=== PATIENT | male | born 1950 | race Caucasian/White ===

== ENCOUNTER 2021-08-08 12:55 | Observation (INO) | payer MEDICARE ==
[2021-08-08] MEDS ORDERED: Sodium Chloride 0.9% 10 ML Syringe FLUSH PRN ×2 (13:19→19:14)
[2021-08-08] MEDS ORDERED: Aspirin 81 MG Tab.Chew PO ONE (13:20)
--- NOTE | 2021-08-08 13:21 | EDM.PDOC ---
ED HPI GENERAL MEDICAL PROBLEM - General Chief Complaint: Neuro Symptoms/Deficits Stated Complaint: MEDICAL VIA [facility] Time Seen by Provider: 08/08/21 13:21 Source of Information: Reports: Patient, Old Records, RN History Limitations: Reports: No Limitations - History of Present Illness INITIAL COMMENTS - FREE TEXT/NARRATIVE: 70 yo male presents after 30 min of R arm and leg weakness/poor control associated with slurred speech. His sx's are resolved before arrival. No hx of CVA or TIA. He does have a hx of elevated cholesterol(not on treatment), elevated BP(has taken his meds today). No hx of either afib or tobacco use. No BERRY. Does have a remote hx of a single seizure and is no longer on tx for that. His mother had a CVA in her 90's. Onset: Today, Sudden Onset Date: 08/08/21 Duration: Minutes: (30), Resolved Prior to Arrival Location: Reports: Face, Upper Extremity, Right, Lower Extremity, Right Quality: Reports: Other (no pain) Severity: Moderate Improves with: Reports: Other (time) Worsens with: Reports: None Context: Reports: Other (See HPI) Associated Symptoms: Reports: No Other Symptoms. Denies: Chest Pain, Diaphoresis, Nausea/Vomiting, Seizure, Shortness of Breath, Syncope Treatments WELFARE DIRECTOR: Reports: Other (see below) (none) - Related Data Allergies Allergy/AdvReac Type Severity Reaction Status Date / Time No Known Allergies Allergy Verified 08/08/21 13:05 Home Meds: Home Meds Cholecalciferol (Vitamin D3) [Vitamin D3] 100 unit PO DAILY 08/08/21 [History] Cyanocobalamin (Vitamin B-12) [Vitamin B-12] 1,000 mcg PO DAILY 08/08/21 [History] Red Yeast Rice 600 mg PO DAILY 08/08/21 [History] lisinopriL [Lisinopril] 10 mg PO DAILY 08/08/21 [History] Past Medical History Cardiovascular History: Reports: Hypertension Neurological History: Reports: Seizure - Past Surgical History GI Surgical History: Reports: Appendectomy, Colon, Colonoscopy, Hernia, Inguinal, Polypectomy Social & Family History - Tobacco Use Tobacco Use Status *Q: Never Tobacco User - Caffeine Use Caffeine Use: Reports: Tea - Recreational Drug Use Recreational Drug Use: No ED ROS GENERAL - Review of Systems Review Of Systems: See Below Constitutional: Reports: No Symptoms HEENT: Reports: No Symptoms Respiratory: Reports: No Symptoms Cardiovascular: Reports: No Symptoms GI/Abdominal: Reports: Nausea (mild, now gone) : Reports: No Symptoms Musculoskeletal: Reports: No Symptoms Skin: Reports: No Symptoms Neurological: Reports: Change in Speech, Other (R sided arm and leg weakness/po or control). Denies: Confusion, Trouble Speaking Psychiatric: Reports: No Symptoms ED EXAM, NEURO - Physical Exam Exam: See Below Exam Limited By: No Limitations General Appearance: Alert, WD/WN, No Apparent Distress Eye Exam: Bilateral Eye: EOMI, Normal Inspection, PERRL Ears: Normal External Exam, Normal Canal, Hearing Grossly Normal, Normal TMs Nose: Normal Inspection, No Blood Throat/Mouth: Normal Inspection, Normal Lips, Normal Oropharynx, Normal Voice, No Airway Compromise Head Exam: Atraumatic, Normocephalic Neck: Normal Inspection Respiratory/Chest: No Respiratory Distress, Lungs Clear, Normal Breath Sounds, No Accessory Muscle Use Cardiovascular: Regular Rate, Rhythm, No Edema GI/Abdominal: Normal Bowel Sounds, Soft, Non-Tender, No Distention Neurological: Alert, Normal Mood/Affect, Normal Dorsiflexion, CN II-XII Intact, No Motor/Sensory Deficits, Oriented x 3 Extremities: Normal Inspection, Normal Range of Motion, Non-Tender, No Pedal Edema Psychiatric: Normal Affect, Normal Mood Skin Exam: Warm, Dry, Intact, Normal Color, No Rash Course - Vital Signs Text/Narrative:: [facility] neurology called @ 1436h, Dr. Abdi. Called back to [facility] @ 1632h, Dr. Abdi, Dr. Rowland notified @ 1725h Last Recorded V/S: Last Vital Signs Temp 36.3 C 08/08/21 13:09 Pulse 64 08/08/21 17:12 Resp 18 08/08/21 17:12 BP 188/96 H 08/08/21 17:12 Pulse Ox 98 08/08/21 17:12 - Orders/Labs/Meds Orders: Active Orders 24 hr Category Date Time Status Cardiac Monitoring [RC] .As Directed Care 08/08/21 13:19 Active Iopamidol [Isovue-370 (76%)] Med 08/08/21 17:00 Active 100 ml IV . DIRECTED Sodium Chloride 0.9% [Normal Saline] 100 ml Med 08/08/21 17:00 Active IV ASDIRECTED Sodium Chloride 0.9% [Saline Flush] Med 08/08/21 13:19 Active 10 ml FLUSH ASDIRECTED PRN Saline Lock Insert [OM.PC] Routine Oth 08/08/21 13:19 Ordered Medication Orders Sodium Chloride (Normal Saline) 100 mls @ 3.5 mls/sec IV ASDIRECTED ROMEL Iopamidol (Iopamidol 755 Mg/Ml 100 Ml Bottle) 100 ml IV . DIRECTED ROMEL Sodium Chloride (Sodium Chloride 0.9% 10 Ml Syringe) 10 ml FLUSH ASDIRECTED PRN PRN Reason: Keep Vein Open Last Admin: 08/08/21 13:56 Dose: 10 ml Documented by: ANTWON Labs: Laboratory Tests 08/08/21 08/08/21 Range/Units 13:30 13:30 WBC 10.6 (4.5-11.0) K/uL RBC 4.94 (4.30-5.90) M/uL Hgb 15.0 (12.0-15.0) g/dL Hct 45.0 (40.0-54.0) % MCV 91 (80-98) fL MCH 30 (27-31) pg MCHC 33 (32-36) % Plt Count 231 (150-400) K/uL Sodium 143 (140-148) mmol/L Potassium 4.7 (3.6-5.2) mmol/L Chloride 105 (100-108) mmol/L Carbon Dioxide 30 (21-32) mmol/L Anion Gap 8.0 (5.0-14.0) mmol/L BUN 15 (7-18) mg/dL Creatinine 1.2 (0.8-1.3) mg/dL Est Cr Clr Drug Dosing 64.73 mL/min Estimated GFR (MDRD) 60 (>60) Glucose 104 (74-106) mg/dL Calcium 9.5 (8.5-10.1) mg/dL Troponin I < 0.017 (0.000-0.056) ng/mL Meds: Medications Generic Name Dose Route Start Last Admin Trade Name Freq PRN Reason Stop Dose Admin Sodium Chloride 100 mls @ 3.5 mls/sec 08/08/21 17:00 Normal Saline IV ASDIRECTED ROMEL Iopamidol 100 ml 08/08/21 17:00 Iopamidol 755 Mg/Ml 100 Ml Bottle IV . DIRECTED ROMEL Sodium Chloride 10 ml 08/08/21 13:19 08/08/21 13:56 Sodium Chloride 0.9% 10 Ml Syringe FLUSH 10 ml ASDIRECTED PRN Administration Keep Vein Open Discontinued Medications Generic Name Dose Route Start Last Admin Trade Name Freq PRN Reason Stop Dose Admin Aspirin 324 mg 08/08/21 13:20 08/08/21 13:55 Aspirin 81 Mg Tab.Chew PO 08/08/21 13:21 324 mg ONETIME ONE Administration Atorvastatin Calcium 10 mg 08/08/21 14:44 08/08/21 15:09 Atorvastatin 10 Mg Tab PO 08/08/21 14:45 10 mg ONETIME ONE Administration Clopidogrel Bisulfate 300 mg 08/08/21 14:43 08/08/21 15:10 Clopidogrel 75 Mg Tab PO 08/08/21 14:44 300 mg ONETIME ONE Administration Clopidogrel Bisulfate 300 mg 08/08/21 17:23 Clopidogrel 75 Mg Tab PO 08/08/21 17:24 ONETIME ONE Sodium Chloride 10 ml 08/08/21 16:59 Sodium Chloride 0.9% 10 Ml Syringe FLUSH 08/08/21 17:00 ONETIME ONE - Radiology Interpretation Free Text/Narrative:: Head CT scan-mpression: No acute intracranial process. Please note that all CT scans at this facility use dose modulation, iterative reconstruction, and/or weight-based dosing when appropriate to reduce radiation dose to as low as reasonably achievable. Dictated by Ev Petit MD @ 08/08/2021 2:28:[address] Results Date: 08/08/21 CT Results Time: 14:34 - Re-Assessments/Exams Free Text/Narrative Re-Assessment/Exam: 08/08/21 14:54 Just after getting off the phone with neurology his speech became a little slurred again, no other sx's. Free Text/Narrative Re-Assessment/Exam: 08/08/21 15:16 Has some trouble with swallowing and has mild RUE sx's now. Departure - Departure Time of Disposition: 17:40 Disposition: Admitted As Inpatient 65 Condition: Fair Clinical Impression: TIA (transient ischemic attack) - Discharge Information Referrals: PCP,None [Primary Care Provider] - Forms: ED Department Discharge Sepsis Event Note (ED) - Evaluation Sepsis Screening Result: No Definite Risk - Focused Exam Vital Signs: Vital Signs Temp Pulse Resp BP Pulse Ox 08/08/21 17:12 64 18 188/96 H 98 08/08/21 16:24 64 15 180/99 H 97 08/08/21 14:21 61 13 168/96 H 97 08/08/21 13:53 61 16 165/92 H 99 08/08/21 13:09 36.3 C 62 13 160/86 H 96 08/08/21 13:05 36.3 C 62 13 160/86 H 96 - My Orders Last 24 Hours: My Active Orders 08/08/21 13:19 Cardiac Monitoring [RC] .As Directed Sodium Chloride 0.9% [Saline Flush] 10 ml FLUSH ASDIRECTED PRN Saline Lock Insert [OM.PC] Routine 08/08/21 17:00 Iopamidol [Isovue-370 (76%)] 100 ml IV . DIRECTED Sodium Chloride 0.9% [Normal Saline] 100 ml IV ASDIRECTED - Assessment/Plan Last 24 Hours: My Active Orders 08/08/21 13:19 Cardiac Monitoring [RC] .As Directed Sodium Chloride 0.9% [Saline Flush] 10 ml FLUSH ASDIRECTED PRN Saline Lock Insert [OM.PC] Routine 08/08/21 17:00 Iopamidol [Isovue-370 (76%)] 100 ml IV . DIRECTED Sodium Chloride 0.9% [Normal Saline] 100 ml IV ASDIRECTED
--- NOTE | 2021-08-08 14:29 | CRLCT ---
For Patients: As a result of the Century Cures Act, medical imaging exams and procedure reports are released immediately into your electronic medical record. You may view this report before your referring provider. If you have questions, please contact your health care provider. Indication: Neuro deficit. Technique: Multiple contiguous axial images were obtained from the skullbase to the vertex without intravenous contrast enhancement. Please note that all CT scans at this facility use dose modulation, iterative reconstruction, and/or weight-based dosing when appropriate to reduce radiation dose to as low as reasonably achievable. Comparison: None Findings: The ventricles are symmetric and normal in size and morphology. The basal cisterns are widely patent. No intra-axial or extra-axial hemorrhage is identified. No mass, mass effect, or midline shift is identified. The bony calvarium is intact. The visualized paranasal sinuses and mastoid air cells are clear. Impression: No acute intracranial process. Please note that all CT scans at this facility use dose modulation, iterative reconstruction, and/or weight-based dosing when appropriate to reduce radiation dose to as low as reasonably achievable. Dictated by Ev Petit MD @ 08/08/2021 2:28:05 PM (Electronically Signed)
[2021-08-08] MEDS ORDERED: Clopidogrel 75 MG Tab PO ONE ×2 (14:43→17:23)
[2021-08-08] MEDS ORDERED: atorvaSTATin 10 MG Tab PO ONE (14:44)
--- NOTE | 2021-08-08 16:23 | CRLCT ---
For Patients: As a result of the Century Cures Act, medical imaging exams and procedure reports are released immediately into your electronic medical record. You may view this report before your referring provider. If you have questions, please contact your health care provider. INDICATION: Transient ischemic attack. TECHNIQUE: CTA head with contrast bolus tracking and 3D MIP reconstruction. FINDINGS: There is scattered intracranial atherosclerotic disease. There is irregularity of the basilar artery with mild stenosis of the mid basilar artery. There is a moderate left posterior cerebral artery stenosis. There are mild stenoses of the anterior and middle cerebral arteries. There is no large vessel occlusion. No aneurysm is identified. IMPRESSION: Intracranial atherosclerotic disease as detailed above. No large vessel occlusion. Please note that all CT scans at this facility use dose modulation, iterative reconstruction, and/or weight-based dosing when appropriate to reduce radiation dose to as low as reasonably achievable. Dictated by James Diehl MD @ 08/08/2021 5:30:19 PM (Electronically Signed)
--- NOTE | 2021-08-08 16:23 | CRLCT ---
For Patients: As a result of the Century Cures Act, medical imaging exams and procedure reports are released immediately into your electronic medical record. You may view this report before your referring provider. If you have questions, please contact your health care provider. INDICATION: Transient ischemic attack. TECHNIQUE: CTA neck with contrast bolus tracking and 3D MIP reconstruction. FINDINGS: Both carotid and vertebral arteries have a normal course and caliber. There is no stenosis or dissection. An indeterminate 1 centimeter nodule is noted in the right thyroid gland. The soft tissues of the neck are otherwise within normal limits. Degenerative changes are incidentally noted in the cervical spine. IMPRESSION: No carotid or vertebral artery stenosis or dissection. Please note that all CT scans at this facility use dose modulation, iterative reconstruction, and/or weight-based dosing when appropriate to reduce radiation dose to as low as reasonably achievable. Dictated by James Diehl MD @ 08/08/2021 5:34:14 PM (Electronically Signed)
[2021-08-08] MEDS ORDERED: Sodium Chloride 0.9% 10 ML Syringe FLUSH ONE (16:59)
[2021-08-08] MEDS ORDERED: Sodium Chloride 0.9% 100 ML IV SCH (17:00)
[2021-08-08] MEDS ORDERED: Iopamidol 755 Mg/ML 100 ML Bottle IV SCH (17:00)
--- NOTE | 2021-08-08 18:20 | PCM.HP.2 ---
H&P History of Present Illness - General Date of Service: 08/08/21 Admit Problem/Dx: Admission Diagnosis/Problem Admission Diagnosis/Problem TIA, Transient ischemic attack Source of Information: Patient, Family, Provider, RN Notes Reviewed History Limitations: Reports: No Limitations - History of Present Illness Initial Comments - Free Text/Narative: Mr. Vang is a 70-year-old gentleman who was admitted to observation status through the emergency department for further evaluation and management of a TIA. He was feeling well until this morning when he began to experience right leg and arm weakness. He was able to get help from his and she noted abnormality of his speech. He was brought into the emergency department by EMS. Shortly thereafter his symptoms resolved. He had a transient recurrence of right arm and leg weakness that was fairly mild that resolved after a few minutes. He has had no recurrent symptoms since that time. CT scan of the head without contrast showed no acute abnormalities. CTA of the head and neck showed dense of some mild to moderate atherosclerotic disease but nothing severe. His symptoms and findings have been reviewed with neurologist on-call in [place] and they have recommended that he be monitored overnight with MRI, carotid Doppler and echocardiogram in the a.m. He has been started on aspirin, Plavix, and Lipitor. - Related Data Allergies/Adverse Reactions: Allergies Allergy/AdvReac Type Severity Reaction Status Date / Time No Known Allergies Allergy Verified 08/08/21 13:05 Home Medications: Home Meds Cholecalciferol (Vitamin D3) [Vitamin D3] 100 unit PO DAILY 08/08/21 [History] Cyanocobalamin (Vitamin B-12) [Vitamin B-12] 1,000 mcg PO DAILY 08/08/21 [History] Red Yeast Rice 600 mg PO DAILY 08/08/21 [History] lisinopriL [Lisinopril] 10 mg PO DAILY 08/08/21 [History] Past Medical History Cardiovascular History: Reports: Hypertension Neurological History: Reports: Seizure - Past Surgical History GI Surgical History: Reports: Appendectomy, Colon, Colonoscopy, Hernia, Inguinal, Polypectomy Social & Family History - Tobacco Use Tobacco Use Status *Q: Never Tobacco User - Caffeine Use Caffeine Use: Reports: Tea - Recreational Drug Use Recreational Drug Use: No H&P Review of Systems - Review of Systems: Review Of Systems: See Below General: Reports: No Symptoms HEENT: Reports: No Symptoms Pulmonary: Reports: No Symptoms Cardiovascular: Reports: No Symptoms Gastrointestinal: Reports: No Symptoms Genitourinary: Reports: No Symptoms Musculoskeletal: Reports: No Symptoms Skin: Reports: No Symptoms Psychiatric: Reports: No Symptoms Neurological: Reports: Weakness, Change in Speech Hematologic/Lymphatic: Reports: No Symptoms Immunologic: Reports: No Symptoms Exam - Exam Exam: See Below - Vital Signs Vital Signs: Last Vital Signs Temp 97.3 F 08/08/21 13:09 Pulse 64 08/08/21 17:12 Resp 18 08/08/21 17:12 BP 188/96 H 08/08/21 17:12 Pulse Ox 98 08/08/21 17:12 Weight: 195 lb - Exam General: Alert, Oriented HEENT: Conjunctiva Clear, Hearing Intact, Mucosa Moist & [place], Normal Nasal Septum, Posterior Pharynx Clear, Pupils Equal Neck: Supple, Trachea Midline, +2 Carotid Pulse wo Bruit Lungs: Clear to Auscultation, Normal Respiratory Effort Cardiovascular: Regular Rate, Regular Rhythm, Normal S1, Normal S2. No: Systolic Murmur, Diastolic Murmur GI/Abdominal Exam: Soft, Non-Tender, No Organomegaly, No Distention Back Exam: Normal Inspection, Full Range of Motion Extremities: Non-Tender, No Pedal Edema Skin: Warm, Dry, Intact Neurological: Cranial Nerves Intact, Strength Equal Bilateral, Normal Speech, Normal Tone, Sensation Intact. No: Focal Deficit Neuro Extensive - Mental Status: Alert, Oriented x3, Normal Mood/Affect, Normal Cognition, Memory Intact - Patient Data Lab Results Last 24 hrs: Laboratory Results - last 24 hr 08/08/21 08/08/21 Range/Units 13:30 13:30 WBC 10.6 (4.5-11.0) K/uL RBC 4.94 (4.30-5.90) M/uL Hgb 15.0 (12.0-15.0) g/dL Hct 45.0 (40.0-54.0) % MCV 91 (80-98) fL MCH 30 (27-31) pg MCHC 33 (32-36) % Plt Count 231 (150-400) K/uL Sodium 143 (140-148) mmol/L Potassium 4.7 (3.6-5.2) mmol/L Chloride 105 (100-108) mmol/L Carbon Dioxide 30 (21-32) mmol/L Anion Gap 8.0 (5.0-14.0) mmol/L BUN 15 (7-18) mg/dL Creatinine 1.2 (0.8-1.3) mg/dL Est Cr Clr Drug Dosing 64.73 mL/min Estimated GFR (MDRD) 60 (>60) Glucose 104 (74-106) mg/dL Calcium 9.5 (8.5-10.1) mg/dL Troponin I < 0.017 (0.000-0.056) ng/mL Result Diagrams: 08/08/21 13:30 08/08/21 13:30 Sepsis Event Note - Evaluation Sepsis Screening Result: No Definite Risk - Focused Exam Vital Signs: Vital Signs Temp Pulse Resp BP Pulse Ox 08/08/21 17:12 64 18 188/96 H 98 08/08/21 16:24 64 15 180/99 H 97 08/08/21 14:21 61 13 168/96 H 97 08/08/21 13:53 61 16 165/92 H 99 08/08/21 13:09 97.3 F 62 13 160/86 H 96 08/08/21 13:05 97.3 F 62 13 160/86 H 96 *Q Meaningful Use (ADM) - VTE Risk Assess *Q Each Risk Factor Represents 1 Point: None Total Score 1 Point Risk Factors: 0 Each Risk Factor Represents 2 Points: Age 60 - 74 Years Total Score 2 Point Risk Factors: 2 Each Risk Factor Represents 3 Points: None Total Score 3 Point Risk Factors: 0 Each Risk Factor Represents 5 Points: None Total Score 5 Point Risk Factors: 0 Venous Thromboembolism Risk Factor Score *Q: 2 Problem List Initiated/Reviewed/Updated: Yes Orders Last 24hrs: Active Orders 24 hr Category Date Time Status Patient Status Manage Transfer [TRANSFER] Routine ADT 08/08/21 18:05 Ordered Cardiac Monitoring [RC] .As Directed Care 08/08/21 13:19 Active COVID-19/FLU A+B/RSV [MOLEC] Stat Lab 08/08/21 18:09 Received Iopamidol [Isovue-370 (76%)] Med 08/08/21 17:00 Active 100 ml IV . DIRECTED Sodium Chloride 0.9% [Normal Saline] 100 ml Med 08/08/21 17:00 Active IV ASDIRECTED Sodium Chloride 0.9% [Saline Flush] Med 08/08/21 13:19 Active 10 ml FLUSH ASDIRECTED PRN Saline Lock Insert [OM.PC] Routine Oth 08/08/21 13:19 Ordered Resuscitation Status Routine Resus Stat 08/08/21 18:06 Ordered Medication Orders Sodium Chloride (Normal Saline) 100 mls @ 3.5 mls/sec IV ASDIRECTED [facility] Last Admin: 08/08/21 18:07 Dose: 4 mls/sec Documented by: RUY Iopamidol (Iopamidol 755 Mg/Ml 100 Ml Bottle) 100 ml IV . DIRECTED [facility] Last Admin: 08/08/21 18:07 Dose: 100 ml Documented by: RUY Sodium Chloride (Sodium Chloride 0.9% 10 Ml Syringe) 10 ml FLUSH ASDIRECTED PRN PRN Reason: Keep Vein Open Last Admin: 08/08/21 13:56 Dose: 10 ml Documented by: ANTWON Assessment/Plan Comment:: ASSESSMENT AND PLAN TRANSIENT ISCHEMIC ATTACK-onset of transient right-sided weakness with expressive aphasia earlier today. Symptoms resolved and then recurred for a few minutes. He is now fully back to normal and denies any neurologic symptoms. Evaluation has been unremarkable including unenhanced CT scan of the head, as well as CTA of the head and neck. -Neurochecks every 2 hours -Cardiac monitoring -Plavix 75 mg p.o. daily -Aspirin 325 mg p.o. daily -Atorvastatin 10 mg p.o. nightly -MRI with contrast in a.m. -Carotid ultrasound in a.m. -Echocardiogram in a.m. HYPERTENSION -Continue current therapy with lisinopril MAINTENANCE ISSUES -DVT prophylaxis; SCUDs -GI prophylaxis; not indicated -Noonan catheter; not indicated -Nutrition; 2 g sodium diet -Nicotine dependence; not required CODE STATUS-FULL CODE ADMISSION STATUS-this patient will be admitted to observation status, expect no more than a one night hospital stay for evaluation and management of problems as outlined above. DISPOSITION-anticipate discharge to home after the hospital stay. PRIMARY CARE PROVIDER-Dr. Walter - Mortality Measure Prognosis:: Good
[2021-08-08 18:48] LABS: CORONAVIRUS COVID-19 NAA NEGATIVE (NEGATIVE)
[2021-08-08] MEDS ORDERED: Polyethylene Glycol 3350 Powder 17 GM Packet PO PRN (19:14)
[2021-08-08] MEDS ORDERED: Acetaminophen 325 MG Tab PO PRN (19:14)
[2021-08-08] MEDS ORDERED: Ondansetron 4 MG/2 ML SDV IV PRN (19:14)
[2021-08-09] MEDS ORDERED: Gadoteridol 279.3 MG/ML 20 ML SDV IV SCH (09:00)
[2021-08-09] MEDS ORDERED: Clopidogrel 75 MG Tab PO SCH (09:00)
[2021-08-09] MEDS ORDERED: Aspirin 325 MG Tab.EC PO SCH (09:00)
[2021-08-09] MEDS ORDERED: Lisinopril 10 MG Tab PO SCH (09:00)
--- NOTE | 2021-08-09 10:22 | CRLMR ---
For Patients: As a result of the Century Cures Act, medical imaging exams and procedure reports are released immediately into your electronic medical record. You may view this report before your referring provider. If you have questions, please contact your health care provider. INDICATION: Right-sided weakness. TECHNIQUE: Multiplanar multisequence MR imaging acquired through the brain prior to and following intravenous contrast. COMPARISON: CT brain 08/08/2021. FINDINGS: The ventricles and sulci are within normal limits for patient age. No mass effect or midline shift. Patchy T2 FLAIR hyperintensities in the supratentorial white matter and shiraz, nonspecific though typical for sequelae of [id number] chronic microvascular ischemic changes. No diffusion restriction to suggest acute infarction. No recent intracranial hemorrhage or pathologic extra-axial fluid collection. Peripherally T2 hypointense, centrally T2 hyperintense lesion demonstrating susceptibility blooming within the right putamen measuring 6 mm (series 3, image 15), most compatible with a small cavernous malformation. No perilesional edema to suggest recent hemorrhage. No concerning pathologic intracranial enhancement. The major arterial flow voids of the skullbase are preserved. The globes are symmetric. Small maxillary sinus retention cyst or polyps. Trace left mastoid fluid. Incidental Thornwaldt cyst. IMPRESSION: 1. No acute intracranial abnormality. 2. 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 No perilesional edema to suggest recent hemorrhage. 3. [id number] chronic microvascular ischemic changes. Dictated by Bj Collins MD @ 08/09/2021 10:20:47 AM (Electronically Signed)
--- NOTE | 2021-08-09 12:17 | CRLUS ---
For Patients: As a result of the Cures Act, medical imaging exams and procedure reports are released immediately into your electronic medical record. You may view this report before your referring provider. If you have questions, please contact your health care provider. INDICATION: TIA, right-sided weakness TECHNIQUE: The carotid circulations and the vertebral arteries in the neck were examined with ng-scale ultrasound, color-flow and Doppler spectral analysis. Degrees of stenosis were determined using SRU 2002 Consensus Panel Criteria. COMPARISON: CTA neck August 08, 2021 FINDINGS: Multiple sonographic images with ng-scale, color Doppler and spectral Doppler analysis were obtained demonstrate no significant visualized plaque of the bifurcations bilaterally. Velocities are within normal limits bilaterally. The right ICA/CCA ratio is 1.3 and the left ICA/CCA ratio is 0.8. Spectral waveforms are normal. Both vertebral arteries are antegrade. IMPRESSION: No evidence of significant atherosclerotic calcification or high-grade stenosis according to the NASCET criteria. Dictated by Catarino Dowling MD @ 08/09/2021 12:16:36 PM (Electronically Signed)
--- NOTE | 2021-08-09 14:51 | PCM.DCSUM1 ---
Discharge Summary - Hospital Course Brief History: 70-year-old male with history of hypertension who presented with right-sided weakness and speech difficulties. He was admitted for expedited work-up and additional management of a TIA. Diagnosis: Stroke: No - Discharge Data Discharge Date: 08/09/21 Discharge Disposition: Home, Self-Care 01 Condition: Good - Referral to Home Health Primary Care Physician: PCP None - Patient Summary/Data Hospital Course: Juwan presented to the emergency room with right arm and leg weakness as well as some speech difficulties. Initial work-up in the emergency room was unremarkable including a head CT and laboratory studies. He also had a CT angiogram that did not show any significant blockages. Neurology was consulted from the emergency room. They recommended aspirin, clopidogrel, atorvastatin and additional work-up including MRI, echo and carotid ultrasound. Patient was admitted overnight with cardiac monitoring. There were no abnormalities on telemetry overnight. His MRI did not show any abnormalities in the brain other than some mild chronic small vessel ischemic disease. His carotid ultrasound was unremarkable. His echocardiogram showed minor valvular abnormalities but no significant or concerning findings. There is no evidence for intracardiac clot or shunt. Patient has not had recurrence of any of his symptoms and feels well. He has been up and walking around without any limitations. The plan is for him to go home and will continue with his aspirin, clopidogrel and statin. He will be following up with primary care in 1 week. - Patient Instructions Diet: Heart Healthy Diet Activity: As Tolerated Showering/Bathing: May Shower Other/Special Instructions: 1. You were in the hospital for evaluation and management of a transient ischemic attack. We performed extensive tests including an MRI of your brain, CT angiogram of your head and neck, carotid ultrasound and echocardiogram. We did not find any large vessel blockages. I suspect that you had a slow buildup of plaque in one of the arteries inside your brain. To help reduce the risk of stroke in the future we have started you on aspirin 81 mg daily, clopidogrel (Plavix) 75 mg daily and moderate intensity atorvastatin (Lipitor) 40 mg daily. I would recommend that you follow-up with your primary care in 4 to 6 weeks to recheck your cholesterol numbers. 2. Continue your usual home medications as previously prescribed. 3. Follow up with your primary care in 1 to 2 weeks to recheck after your TIA and then again in 4 to 6 weeks to recheck your cholesterol numbers. - Discharge Plan *PRESCRIPTION DRUG MONITORING PROGRAM REVIEWED*: Not Applicable *COPY OF PRESCRIPTION DRUG MONITORING REPORT IN PATIENT DAISY: Not Applicable Prescriptions/Med Rec: atorvaSTATin Calcium [Atorvastatin Calcium] 40 mg PO DAILY #30 tablet Aspirin [Halfprin] 81 mg PO DAILY #30 tab.ec Clopidogrel [Plavix] 75 mg PO DAILY #30 tablet Home Medications: Home Meds Cholecalciferol (Vitamin D3) [Vitamin D3] 100 unit PO DAILY 08/08/21 [History] Cyanocobalamin (Vitamin B-12) [Vitamin B-12] 1,000 mcg PO DAILY 08/08/21 [History] Red Yeast Rice 600 mg PO DAILY 08/08/21 [History] lisinopriL [Lisinopril] 10 mg PO DAILY 08/08/21 [History] Aspirin [Halfprin] 81 mg PO DAILY #30 tab.ec 08/09/21 [Rx] Clopidogrel [Plavix] 75 mg PO DAILY #30 tablet 08/09/21 [Rx] atorvaSTATin Calcium [Atorvastatin Calcium] 40 mg PO DAILY #30 tablet 08/09/21 [Rx] Oxygen Therapy Mode: Room Air Patient Handouts: Fall Prevention in the Home, Adult, [id number], Transient Ischemic Attack, [id number], Atorvastatin tablets Referrals: Curt Walter NP [Ordering Only Provider] - 08/16/21 10:40 am (Please arrive 15 minutes early to register for your appointment.) - Discharge Summary/Plan Comment DC Time >30 min.: No Total # of Minutes for Discharge Time: 25 - Patient Data Vitals - Most Recent: Last Vital Signs Temp 36.5 C 08/09/21 11:52 Pulse 71 08/09/21 11:52 Resp 18 08/09/21 11:52 BP 142/88 H 08/09/21 11:52 Pulse Ox 98 08/09/21 11:52 Weight - Most Recent: 87.997 kg I&O - Last 24 hours: Intake & Output 08/08/21 08/09/21 08/09/21 22:59 06:59 14:59 Intake Total 60 240 Output Total 400 300 Balance -340 -60 Lab Results - Last 24 hrs: Laboratory Results - last 24 hr 08/08/21 Range/Units 18:09 Influenza Type A RNA Negative (NEGATIVE) RSV RNA (INAAT) Negative (NEGATIVE) Influenza Type B RNA Negative (NEGATIVE) SARS-CoV-2 RNA (YODIT) Negative (NEGATIVE) Med Orders - Current: Current Medications Acetaminophen (Acetaminophen 325 Mg Tab) 650 mg PO Q4H PRN PRN Reason: Pain (Mild 1-3)/fever Aspirin (Aspirin 325 Mg Tab.Ec) 325 mg PO DAILY [facility] Last Admin: 08/09/21 08:32 Dose: 325 mg Documented by: Atorvastatin Calcium (Atorvastatin 10 Mg Tab) 10 mg PO BEDTIME [facility] Clopidogrel Bisulfate (Clopidogrel 75 Mg Tab) 75 mg PO DAILY [facility] Last Admin: 08/09/21 08:32 Dose: 75 mg Documented by: Lisinopril (Lisinopril 10 Mg Tab) 10 mg PO DAILY [facility] Last Admin: 08/09/21 08:32 Dose: 10 mg Documented by: Ondansetron HCl (Ondansetron 4 Mg/2 Ml Sdv) 4 mg IV Q4H PRN PRN Reason: Nausea/Vomiting Polyethylene Glycol (Polyethylene Glycol 3350 Powder 17 Gm Packet) 17 gm PO DAILY PRN PRN Reason: Constipation Sodium Chloride (Sodium Chloride 0.9% 10 Ml Syringe) 10 ml FLUSH ASDIRECTED PRN PRN Reason: Keep Vein Open Discontinued Medications Aspirin (Aspirin 81 Mg Tab.Chew) 324 mg PO ONETIME ONE Stop: 08/08/21 13:21 Last Admin: 08/08/21 13:55 Dose: 324 mg Documented by: Atorvastatin Calcium (Atorvastatin 10 Mg Tab) 10 mg PO ONETIME ONE Stop: 08/08/21 14:45 Last Admin: 08/08/21 15:09 Dose: 10 mg Documented by: Clopidogrel Bisulfate (Clopidogrel 75 Mg Tab) 300 mg PO ONETIME ONE Stop: 08/08/21 14:44 Last Admin: 08/08/21 15:10 Dose: 300 mg Documented by: Clopidogrel Bisulfate (Clopidogrel 75 Mg Tab) 300 mg PO ONETIME ONE Stop: 08/08/21 17:24 Last Admin: 08/08/21 17:58 Dose: 300 mg Documented by: Gadoteridol (Gadoteridol 279.3 Mg/Ml 20 Ml Sdv) 20 ml IV . DIRECTED [facility] Last Admin: 08/09/21 09:24 Dose: 20 ml Documented by: Sodium Chloride (Normal Saline) 100 mls @ 3.5 mls/sec IV ASDIRECTED [facility] Last Admin: 08/08/21 18:07 Dose: 4 mls/sec Documented by: Iopamidol (Iopamidol 755 Mg/Ml 100 Ml Bottle) 100 ml IV . DIRECTED [facility] Last Admin: 08/08/21 18:07 Dose: 100 ml Documented by: Sodium Chloride (Sodium Chloride 0.9% 10 Ml Syringe) 10 ml FLUSH ASDIRECTED PRN PRN Reason: Keep Vein Open Last Admin: 08/08/21 13:56 Dose: 10 ml Documented by: Sodium Chloride (Sodium Chloride 0.9% 10 Ml Syringe) 10 ml FLUSH ONETIME ONE Stop: 08/08/21 17:00 Last Admin: 08/08/21 18:07 Dose: 10 ml Documented by:
[2021-08-09] MEDS ORDERED: atorvaSTATin 10 MG Tab PO SCH (21:00)
== END 2021-08-09 15:10 | disposition home or self-care (01) ==
LOC: JP.ED 12:55 → JP.MS 18:05
PROVIDERS: ADMIT Hospitalist; ATTEND Internal Medicine
DX: R47.01 Aphasia (principal); R47.81 Slurred speech; R53.1 Weakness; Z79.899 Other long term (current) drug therapy; Z90.49 Acquired absence of other specified parts of digestive tract; I10 Essential (primary) hypertension; Z20.822 Contact with and (suspected) exposure to COVID-19
CPT/HCPCS: 0241U; 36415; 70450; 70496; 70498; 70553; 80048; 84484; 85027; 93306; 93880; 99285; A9270; A9579; G0378; Q9967